=== PATIENT | male | born 1970 | race Hispanic/Latino ===

== ENCOUNTER 2022-05-14 23:36 | Emergency (ER) | payer OTHER ==
[~2022-05-14] VITALS: Ht 167.6 cm; Wt 86.2 kg
[2022-05-15] MEDS ORDERED: ONDANSETRON 4MG INJ IVP ONE
[2022-05-15 00:06] LABS: BASOPHILS % (AUTO) 0.2 % (0.0-5.0); EOSINOPHILS % (AUTO) 2.5 % (0.0-8.0); HEMATOCRIT 42.4 % (42-54); LYMPHOCYTES % (AUTO) 12.1 % (21.0-51.0); MEAN CORPUSCULAR HEMOGLOBIN 29.4 pg (27.0-33.0); MEAN CORPUSCULAR HGB CONC 34.2 g/dL (32.0-36.0); MEAN CORPUSCULAR VOLUME 85.8 fL (79-99); MONOCYTES % (AUTO) 5.4 % (3.0-13.0); NEUTROPHILS % (AUTO) 79.5 % (40.0-77.0); PLATELET COUNT (AUTO) 275 K/uL (130-400); RED BLOOD CELL COUNT(AUTO) 4.94 MIL/uL (4.50-6.20); WHITE BLOOD COUNT (AUTO) 13.4 K/uL (4.8-10.8)
[2022-05-15 00:19] LABS: CREATININE 1.3 mg/dL (0.5-1.5); POTASSIUM 4.3 mmol/L (3.5-5.1)
[2022-05-15 00:20] LABS: INR 0.93 (0.85-1.15); PROTHROMBIN TIME 9.8 SEC (9.6-11.6)
[2022-05-15 00:22] LABS: PARTIAL THROMBOPLASTIN TIME 25.1 SEC (26.3-35.5)
[2022-05-15 00:23] LABS: ALBUMIN 4.1 g/dL (3.5-5.0); TOTAL PROTEIN, SERUM 8.4 g/dL (6.0-8.3)
[2022-05-15] MEDS ORDERED: LIDOCAINE HCL 2% VISCOUS 15 ML UDCUP PO ONE (00:30)
[2022-05-15] MEDS ORDERED: MAG/ALUM/SIMETH 30 ML UDCUP PO ONE (00:30)
[2022-05-15 00:34] LABS: APPEARANCE,URINE CLEAR (CLEAR); BILIRUBIN,URINE NEGATIVE (NEGATIVE); COLOR,URINE LIGHT-YELLOW (YELLOW); GLUCOSE, URINE (UA) >=1000 mg/dL (NEGATIVE); KETONES,URINE NEGATIVE (NEGATIVE); LEUKOCYTE ESTERASE ,URINE NEGATIVE Leu/uL (NEGATIVE); NITRATE,URINE NEGATIVE (NEGATIVE); OCCULT BLOOD,URINE NEGATIVE (NEGATIVE); PH,URINE 8.5 (5.0-8.0); PROTEIN,URINE NEGATIVE (NEGATIVE); UROBILINOGEN,URINE 0.2 mg/dL (0.2-1.0)
[2022-05-15 00:37] LABS: WBC,URINE 0-1 /HPF (0-1)
[2022-05-15] MEDS ORDERED: IOHEXOL 350 MG/ML 100ML INFUS..BTL IV ONE (03:34)
[2022-05-15] MEDS ORDERED: OMEP40CA21 PO (05:09)
[2022-05-15] MEDS ORDERED: MAG-55 PO (05:09)
[2022-05-15 05:26] VITALS: BP 154/82
== END 2022-05-15 05:47 | disposition home or self-care (01) ==
LOC: EDH 23:36
DX: R10.11 Right upper quadrant pain (principal); K21.9 Gastro-esophageal reflux disease without esophagitis; K44.9 Diaphragmatic hernia without obstruction or gangrene; E11.9 Type 2 diabetes mellitus without complications; I10 Essential (primary) hypertension
CPT/HCPCS: 99285; 96374; 84484; 80053; 83690; 85025; 85610; 85730; 81001; 36415; 93005; 74177; 76705; J2405; Q9967

== ENCOUNTER 2025-01-18 08:07 | Emergency (ER) | payer SELFPAY ==
[~2025-01-18] VITALS: Ht 167.6 cm; Wt 88.9 kg
[~2025-01-18 08:07] MED LIST: MAG-55 PO; OMEP40CA21 PO
--- NOTE | 2025-01-18 08:21 | ERN ---
General Chief Complaint: Stroke Symptoms Stated Complaint: STROKE Time Seen by MD: 08:11 History of Present Illness Initial Comments 54-year-old male, history of diabetes and hypertension, presents for stroke symptoms. Patient reports his last known well time was midnight on 01/18/2025. He woke up this morning and he feels discoordinated in his left arm, according to his he was slurring his words. He reports that he feels like his tongue does not work has a normally does. No headache or neck pain. No fevers. No ot her symptoms. He does not take a blood thinner. Allergies: Coded Allergies: No Known Drug Allergies (Unverified Allergy, Unknown, 05/14/22) Home Meds Active Scripts Mag Hydrox/Al Hydrox/Simeth (Maalox Maximum Strength Susp) 355 Ml Oral.susp, 355 ML PO QID PRN for HEARTBURN, #300 ML Prov:EFRAIN MCLEAN MD 05/15/22 Omeprazole (Omeprazole) 40 Mg Capsule.dr, 40 MG PO DAILY, #30 CAP Prov:EFRAIN MCLEAN MD 05/15/22 Past Medical History Past Medical History: Diabetes-Type II, Hypertension Past Surgical History: None ROS Dictation CONSTITUTIONAL: No chills, no fever, no weakness, no diaphoresis, no malaise. HEAD/FACE: No signs of trauma. EENT: No eye pain, no blurred vision, no tearing, no double vision, no ear pain, no ear discharge, no nose pain, no nasal congestion, no throat pain, no throat swelling, no mouth pain. RESPIRATORY: No cough, no orthopnea, no SOB, no stridor, no wheezing. CARDIOVASCULAR: No chest pain, no edema, no palpitations, no syncope. GASTROINTESTINAL/ABDOMINAL: No abdominal pain, no constipation, no diarrhea, no nausea, no vomiting. GENITOURINARY: No abnormal discharge, no dysuria, no frequent urination, no hematuria. No complaints of pain in the genitals. MUSCULOSKELETAL: No back pain, no gout, no joint pain, no joint swelling, no muscle pain, no muscle stiffness, no neck pain. INTEGUMENTARY: No change in color, no change in hair/nails, no dryness, no lesion, no lumps, no rash. NEUROLOGICAL/PSYCH: Left arm uncoordinated, dysarthria HEMATOLOGIC/LYMPHATIC: Not anemic, no history of blood clots, no apparent bleeding, no bruising, glands not swollen. All Systems Negative, Except as Noted. Physical Exam Physical Exam Dictation VITAL SIGNS: Reviewed. GENERAL APPEARANCE: Alert, oriented x3 HEAD AND FACE: Non-traumatic. EYES: PERRL, pink conjunctivas, eyelid no trauma, anterior chamber clear. EARS: Pinnas intact and no signs of trauma or erythema. Ear canals clear and no discharge. TMs no erythema. NOSE: No discharge, no bleeding. OROPHARYNX: Mouth normal, teeth no caries, tongue pink. Pharynx clear, no erythema. Tonsils no exudates, no abscesses noted. Mucous membrane moist. NECK: Supple, non-tender, no thyromegaly, no masses, no JVD, no bruits. BREAST: Deferred. CHEST: No tenderness, no crepitus, no paradoxical movement, no retractions. LUNGS: Clear, well-ventilated, symmetric, no rales, no wheezing, no rhonchi, no stridor, good breath sounds bilaterally. HEART: Regular rate, regular rhythm, no murmur, no gallops. VASCULAR: No peripheral edema. ABDOMEN: Soft, positive bowel sounds, nondistended, no guarding, nontender, no rebound, no masses no hepatomegaly, no splenomegaly, no Awan's sign, no hernias. RECTAL: Deferred. GENITAL: Deferred. NEUROLOGICAL: Normal speech, gross motor function intact, gross sensory function intact. MUSCULOSKELETAL: Neck nontender, full range of motion, back nontender, full range of motion. EXTREMITIES: Nontender, full range of motion. SKIN: Color pink, dry, no turgor, no rash, no lacerations, no abrasions, no contusions. LYMPHATICS: Deferred. Is Patient Candidate for t-PA?: No (Last known well 01/18 at midnight. Greater than 4.5 hours from onset of symptoms.) NIH STROKE SCALE: NIH STROKE SCALE Response (Comments) Value Level of Consciousness Alert 0 Ask patient month and their age Answers both correct 0 Command to open eyes, make fist and let go Obeys both correct 0 Best gaze (horizontal eye movement) Normal 0 Visual Field Testing No Visual Field Loss 0 Facial Paresis Partial Paralysis 2 Motor Function - Left Arm Normal 0 Motor Function - Right Arm Normal 0 Motor Function - Left Leg Normal 0 Motor Function - Right Leg Normal 0 Limb Ataxia No Ataxia 0 Sensory-pin prick to arms, legs, trunk and face Mild to Moderate Decrease 1 Best Language (describe picture, name items and read) No Aphasia 0 Dysarthria (read several words) Normal Articulation 0 Extinction and Inattention Normal 0 Total 3 Results Laboratory and Microbiology Lab and Micro Result Laboratory Tests Test 01/18/25 08:19 01/18/25 08:47 White Blood Count 7.9 K/uL (4.8-10.8) Red Blood Count 5.25 MIL/uL (4.50-6.20) Hemoglobin 15.6 g/dL (14.0-18.0) Hematocrit 44.1 % (42-54) Mean Corpuscular Volume 84.0 fL (79-99) Mean Corpuscular Hemoglobin 29.7 pg (27.0-33.0) Mean Corpuscular Hemoglobin Concent 35.4 g/dL (32.0-36.0) Red Cell Distribution Width 12.0 % (11.0-15.5) Platelet Count 313 K/uL (130-400) Mean Platelet Volume 9.5 fL (7.5-10.5) Immature Granulocyte % (Auto) 0.1 % (0-1) Neutrophils (%) (Auto) 46.6 % (40.0-77.0) Lymphocytes (%) (Auto) 43.7 % (21.0-51.0) Monocytes (%) (Auto) 7.2 % (3.0-13.0) Eosinophils (%) (Auto) 1.8 % (0.0-8.0) Basophils (%) (Auto) 0.6 % (0.0-5.0) Neutrophils # (Auto) 3.7 K/uL (1.8-7.7) Lymphocytes # (Auto) 3.5 K/uL (1.0-4.8) Monocytes # (Auto) 0.6 K/uL (0.1-1.0) Eosinophils # (Auto) 0.14 K/uL (0.00-0.70) Basophils # (Auto) 0.05 K/uL (0.00-0.20) Absolute Immature Granulocyte (auto 0.01 K/uL (0-1) Nucleated Red Blood Cells 0.0 % (0.0-0.19) Prothrombin Time 9.8 SEC (9.6-11.6) Prothromb Time International Ratio <= 0.93 (0.85-1.15) Activated Partial Thromboplast Time 25.9 SEC (26.3-35.5) L Sodium Level 137 mmol/L (136-145) Potassium Level 4.2 mmol/L (3.5-5.1) Chloride Level 98 mmol/L (101-111) L Carbon Dioxide Level 28 mmol/L (21-32) Blood Urea Nitrogen 20 mg/dL (7-18) H Creatinine 1.3 mg/dL (0.5-1.3) Glomerular Filtration Rate Calc 64 mL/min (>90) Random Glucose 342 mg/dL (70-105) H Total Calcium 8.7 mg/dL (8.5-10.1) Total Creatine Kinase 95 U/L (21-232) Troponin I High Sensitivity 6 ng/L (4-75) LDL Cholesterol 118 mg/dL (0-99) H MDM CC: Left-sided sensation ofuncoordinated, dysarthria, left-sided facial droop. Last known well 01/18/2025 at midnight Limitations by social determinants of health: None Differential diagnosis: Stroke, TIA, other Vital signs are stable Comorbidities include diabetes and hypertension Patient comes in as a stroke alert. Patient has not a TNK candidate due to greater than 4.5 hours since onset of symptoms. Case discussed with the neurologist, patient needs a stroke workup. Not a candidate for TNK. I spoke with the radiologist, CT head without contrast shows no acute bleeding Vital signs show hypertension, otherwise unremarkable EKG: Sinus rhythm, rate 73, left axis deviation, good R-wave progression, intervals are stable no STEMI. Labs show no leukocytosis or anemia. Coags are stable. Chemistry shows glucose 342, no signs of DKA. Otherwise stable. Chest x-ray: No cardiomegaly pleural effusions or focal infiltrate. CTA shows no LVO. Patient received an aspirin here in the ER. I discussed the case with [facility] hospitalist for admission. ED Course Orders Procedure Category Date Status Time Cbc With Differential LAB 01/18/25 Complete 08:18 Prothrombin Time With LAB 01/18/25 Complete INR 08:18 Partial LAB 01/18/25 Complete Thromboplastin Time 08:18 Ct Head/Brain W/O CT 01/18/25 Resulted Contrast 08:18 Chest 1vw RAD 01/18/25 Resulted 08:18 12 Lead Ekg Tracing- EKG 01/18/25 Logged Technical 08:18 Creatine Kinase, Total LAB 01/18/25 Complete 08:18 Ldl Direct LAB 01/18/25 Complete 08:18 Troponin I High LAB 01/18/25 Complete Sensitivity 08:18 Urinalysis Profile LAB 01/18/25 Logged 08:18 Bedside Glucose CPOE 01/18/25 Transmitted Fingerstick 08:18 Basic Metabolic Panel LAB 01/18/25 Complete 08:18 Ct Angio Head And Neck CT 01/18/25 Resulted 09:00 Aspirin 325mg Tab PHA 01/18/25 Complete (Aspirin 325mg Tab) 09:30 Iohexol (Omnipaque) PHA 01/18/25 Complete 09:17 Current Medications Medications (Trade) Dose Ordered Sig/Sohail Route PRN Reason Start Time Stop Time Status Last Admin Dose Admin Aspirin (Aspirin 325mg Tab) 325 mg ONCE ONCE PO 01/18/25 09:30 01/18/25 09:31 DC Iohexol (Omnipaque) 35,000 mg STK-MED ONCE IV 01/18/25 09:17 01/18/25 09:17 DC Vital Signs Date Time Temp Pulse Resp B/P (MAP) Pulse Ox O2 Delivery O2 Flow Rate FiO2 01/18/25 10:03 97.9 80 18 166/87 96 Room Air* 0 21 01/18/25 08:13 96.3 80 19 158/104 96 Room Air 0 DX & DISP Disposition: Transfer ([facility] [place]) Departure Impression: Primary Impression: Stroke Critical Time: 30 minutes (Critical Care Procedure NoteAuthorized and Performed by: meTotal critical care time: Approximately 36 minutesDue to a high probability of clinically significant, life threatening deterioration, the patient required my highest level of preparedness to intervene emergently and I personally spent this critical care time directly and personally managing the patient. This critical care time included obtaining a history; examining the patient; pulse oximetry; ordering and review of studies; arranging urgent treatment with development of a management plan; evaluation of patient's response to treatment; frequent reassessment; and, discussions with other providers.This critical care time was performed to assess and manage the high probability of imminent, life-threatening deterioration that could result in multi-organ failure. It was exclusive of separately billable procedures and treating other patients and teaching time.Please see MDM section and the rest of the note for further information on patient assessment and treatment.) Condition: Stable Referrals: SELF,REFERRAL (PCP) CHAMP DUFFY DO Jan 18, 2025 08:21
[2025-01-18 08:31] LABS: IMMATURE GRANULOCYTE ABSOLUTE 0.01 K/uL (0-1); NUCLEATED RED BLOOD CELLS 0.0 % (0.0-0.19); PLATELET COUNT (AUTO) 313 K/uL (130-400); RED BLOOD CELL COUNT(AUTO) 5.25 MIL/uL (4.50-6.20); RED CELL DISTRIBUTION WIDTH 12.0 % (11.0-15.5); WHITE BLOOD COUNT (AUTO) 7.9 K/uL (4.8-10.8)
--- NOTE | 2025-01-18 08:36 | HMCIMG ---
EXAM: CT Head Without IV contrast. CLINICAL HISTORY: CODE STROKE TECHNIQUE: Axial computed tomography images of the head/brain without intravenous contrast. COMPARISON: None provided. FINDINGS: BRAIN: No evidence of acute hemorrhage. No mass lesion. No CT evidence for acute territorial infarct. No midline shift or extra-axial collections. VENTRICLES: No hydrocephalus. ORBITS: The orbits are unremarkable. SINUSES AND MASTOIDS: The paranasal sinuses and mastoid air cells are clear. BONES: No fracture. SOFT TISSUES: Unremarkable. IMPRESSION: No acute intracranial abnormality. /[place]
--- NOTE | 2025-01-18 08:40 | NUR ---
TRANSFER REQUEST FOR NEUROLOGY SERVICE PER DR WORTH. HEATHER BROWNING
[2025-01-18 08:48] LABS: INR <= 0.93 (0.85-1.15)
[2025-01-18 09:00] LABS: CREATININE 1.3 mg/dL (0.5-1.3); GLOMERULAR FILTR. RATE CALC 64.0 mL/min (>90); GLUCOSE,RANDOM 342.0 mg/dL (70-105); SODIUM SERUM 137.0 mmol/L (136-145); UREA NITROGEN, BLOOD 20.0 mg/dL (7-18)
--- NOTE | 2025-01-18 09:00 | NUR ---
TRANSFER MET WITH PT INFORM OF TRANSFER REQUEST AND PROCESS VERBALIZED UNDERSTANDING AND CONSENT FOR TRANSFER SIGNED . HEATHER BROWNING
--- NOTE | 2025-01-18 09:02 | HMCIMG ---
EXAM: CR Chest, 1 View. CLINICAL HISTORY: stroke COMPARISON: None provided. FINDINGS: LUNGS: There is no mass, infiltrate, or acute pulmonary abnormality. PLEURAL SPACES: No evidence of pleural effusion or pneumothorax. MEDIASTINUM: Cardiac size and mediastinal contours within normal limits. BONES: No aggressive appearing osseous lesion seen. IMPRESSION: No acute cardiopulmonary pathology is evident. /[place]
--- NOTE | 2025-01-18 09:02 | NUR ---
TRANSFER, CALL PLACED TO [facility] [phone] SPOKE WITH VIRGIL INTAKE NURSE INFORMATION PROVIDED SHE WILL CALL BACK. HEATHER BROWNING
--- NOTE | 2025-01-18 09:03 | NUR ---
IMAGING CD MADE FOR TRANSFER.
[2025-01-18 09:05] LABS: CREATINE KINASE, TOTAL 95.0 U/L (21-232); LDL DIRECT 118.0 mg/dL (0-99)
[2025-01-18] MEDS ORDERED: IOHEXOL 350 MG/ML 100ML INFUS..BTL IV ONE (09:17)
--- NOTE | 2025-01-18 09:36 | NUR ---
transfer call back from transfer center with acceptance to [facility] [place] [facility] under doctor Fortino Adams, primary nurse to call report to [phone] then ems when ready. Anup gates
[2025-01-18] MEDS: ASPIRIN 325MG TAB PO ONE (09:37)
--- NOTE | 2025-01-18 09:39 | NUR ---
PT NOTED WITH INCREASED WEAKNESS TO LT ARM AND LEG AND SLURRED SPEECH, MD MADE AWARE, PT TO CT ANGIO HEAD, ASA PO HELD PER MD
--- NOTE | 2025-01-18 09:40 | NUR ---
FALIED SWALLOW TEST, KEPT NPO AFTER PT BEGAN TO COUGH WITH SMALL SIP OF WATER
[2025-01-18 10:03] VITALS: BP 166/87; PULSE 80; RESP 18; TEMP 97.8; O2SAT 96
--- NOTE | 2025-01-18 10:10 | NUR ---
REPORT CALLED KASSANDRA BROWNING AT [facility] [place], PT WILL BE TRANSFERRED ER TO ER ACCEPTED BY ER BINA KWOK.
--- NOTE | 2025-01-18 10:11 | HMCIMG ---
EXAM: CTA Head and Neck with and without Intravenous Contrast. CLINICAL HISTORY: CODE STROKE TECHNIQUE: Axial CTA images of the head and neck performed with and without intravenous contrast in the arterial phase. Coronal and sagittal reformatted images were generated and reviewed. 3-D reformatted images generated on an independent workstation were also reviewed. NASCET criteria were used in assessment of stenosis. CONTRAST: Contrast injected without incident. COMPARISON: CT head dated 01/18. FINDINGS: VASCULATURE:NECK: COMMON CAROTID ARTERIES Small peripheral non-calcific atheromatous plaque in the left distal common carotid artery and carotid bulb, causing <10% luminal narrowing. No significant stenosis of the right common carotid artery. No dissection or occlusion. EXTERNAL CAROTID ARTERIES Patent. INTERNAL CAROTID ARTERIES Small peripheral non-calcific atheromatous plaque in the left proximal internal carotid artery, causing <10% luminal narrowing. No significant stenosis of the right internal carotid artery. No dissection or occlusion. VERTEBRAL ARTERIES No significant stenosis. No dissection or occlusion. HEAD: ANTERIOR CEREBRAL ARTERIES No significant stenosis. No occlusion. No aneurysm. MIDDLE CEREBRAL ARTERIES No significant stenosis. No occlusion. No aneurysm. POSTERIOR CEREBRAL ARTERIES No significant stenosis. No occlusion. No aneurysm. BASILAR ARTERY No significant stenosis. No occlusion. No aneurysm. OTHER: SOFT TISSUES No acute finding. BONES No acute osseous abnormality. IMPRESSION: Normal CT angiogram of the head and neck. /[place]
--- NOTE | 2025-01-18 10:29 | EKG ---
[facility] Test Date: 2025-01-18 Test Time: 08:24:18 Pat Name: ZANE BERRY Department: [facility] Room: Gender: M Database Development Project Manager: [id number] : 1970 Requested By: CHAMP DUFFY Order Number: [id number] Reading MD: Stephan Canales Measurements Intervals Jerome Rate: 73 P: 28 CA: 170 QRS: -20 QRSD: 86 T: 37 QT: 369 QTc: 406 Interpretive Statements Sinus rhythm Compared to ECG 05/14/2022 23:53:42 Sinus arrhythmia no longer present Electronically Signed On 01-18-2025 12:50:55 CDT by Stephan Canales Please click the below link to view image of tracing.
--- NOTE | 2025-01-18 10:33 | NUR ---
REPROT TO EMS FOR TRANSFER, [place] [facility], ALERT, NO CHANGE TO STATUS
== END 2025-01-18 10:42 | disposition critical access hospital (66) ==
LOC: EDH 08:07
DX: I63.9 Cerebral infarction, unspecified (principal); E11.9 Type 2 diabetes mellitus without complications; I10 Essential (primary) hypertension; Z79.899 Other long term (current) drug therapy
CPT/HCPCS: 99291; 70450; 71045; 82550; 83721; 84484; 80048; 85025; 85610; 85730; 36415; 70496; 70498; 93005; Q9967